=== PATIENT | female | born 1955 | race Caucasian/White ===

== ENCOUNTER 2020-09-13 17:22 | Outpatient (CLI) | payer BC, MEDICARE ==
[2020-09-13 17:51] LABS: BASOPHILS % (AUTO) 0.5 % (0-1); EOSINOPHILS # (AUTO) 0.1 X10'3 (0-0.9); EOSINOPHILS % (AUTO) 2.1 % (0-6); HEMATOCRIT 40.3 % (35.0-45.0); HEMOGLOBIN 13.6 g/dl (12.0-16.0); LYMPHOCYTES # (AUTO) 1.9 X10'3 (1.1-4.8); LYMPHOCYTES % (AUTO) 38.9 % (21-51); MEAN CORPUSCULAR HEMOGLOBIN 29.7 PG (27.0-31.0); MEAN CORPUSCULAR HGB CONC 33.8 g/dL (33.0-36.5); MEAN CORPUSCULAR VOLUME 87.9 FL (78-98); MEAN PLATELET VOLUME 9.1 FL (7.4-10.4); MONOCYTES # (AUTO) 0.4 X10'3 (0-0.9); MONOCYTES % (AUTO) 8.9 % (2-12); NEUTROPHILS # (AUTO) 2.4 X10'3 (1.8-7.7); NEUTROPHILS % (AUTO) 49.6 % (42-75); PLATELET COUNT 162 X10'3 (140-440); RED BLOOD COUNT 4.58 X10'6 (4.20-5.60); RED CELL DISTRIBUTION WIDTH 16.2 % (11.5-14.5); WHITE BLOOD COUNT 4.8 X10'3 (4.5-11.0)
[2020-09-13 18:00] LABS: ALANINE AMINOTRANSFERASE 258 U/L (12-78); ALBUMIN 3.5 G/DL (3.4-5.0); ALBUMIN/GLOBULIN RATIO 0.9 (1.1-1.5); ALKALINE PHOSPHATASE 82 IU/L (46-116); ANION GAP 13 (8-16); ASPARTATE AMINO TRANSFERASE 217 U/L (10-37); BILIRUBIN,TOTAL 0.2 MG/DL (0.1-1.0); CALCIUM 9.2 MG/DL (8.5-10.1); CHLORIDE 109 MMOL/L (99-107); GLUCOSE 102 MG/DL (70-104); POTASSIUM 4.1 MMOL/L (3.5-5.1); SODIUM 142 MMOL/L (135-145); TOTAL CARBON DIOXIDE 20.4 MMOL/L (24-32); TOTAL PROTEIN 7.6 G/DL (6.4-8.2)
[2020-09-13 18:12] LABS: BLOOD UREA NITROGEN 70 MG/DL (7-18); eGFR 50 ML/MIN
[2020-09-13 18:13] LABS: BUN/CREATININE RATIO 63.6 (6.6-38.0)
== END 2020-09-13 23:59 | disposition home or self-care (01) ==
LOC: LAB SPEC 17:22
PROVIDERS: ATTEND Family Medicine
DX: I69.354 Hemiplegia and hemiparesis following cerebral infarction affecting left non-dominant side (principal)
CPT/HCPCS: 36415; 80053; 85025

== ENCOUNTER 2023-01-08 20:58 | Inpatient (IN) | payer BC, MEDICARE ==
[~2023-01-08] VITALS: Ht 165.1 cm; Wt 90.9 kg
[2023-01-08 21:19] LABS: ABG BASE EXCESS -27.1 mmol/L (-2.0-2.0); ABG HCO3 7.7 mmol/L (22.0-26.0); ABG OXYGEN SATURATION 99.3 % (94-97); ABG PO2 (T) 400.4 mmHg (75.0-100.0); FCOHb 0.3 % (0.0-3.9); FMetHb 0.3 % (0.0-1.5); FO2Hb 98.7 % (94-97); TOTAL HEMOGLOBIN 10.8 G/dl (12.0-16.0)
[2023-01-08 21:28] VITALS: BP 85/38
[2023-01-08] MEDS ORDERED: normal saline 1000ML IV soln IVB STA (21:33)
[2023-01-08] MEDS ORDERED: NORepinephrine 8mg/ 250ml NS 250 ML IV PRN (21:35)
[2023-01-08] MEDS ORDERED: piperacillin/tazo 3.375gm/50ml 50 ML IV ONE (21:40)
[2023-01-08 21:41] LABS: CLARITY,URINE CLOUDY (Clear); GLUCOSE, URINE NEGATIVE (Neg); KETONES,URINE TRACE mg/dl (Neg); LEUKOCYTE ESTERASE ,URINE NEGATIVE (Neg); NITRITES, URINE NEGATIVE (Neg); OCCULT BLOOD,URINE SMALL (Neg); PROTEIN,URINE >=300 mg/dl (Neg); UROBILINOGEN,URINE 0.2 E.U/dL (0.2-1.0)
[2023-01-08 21:42] LABS: COLOR,URINE DARK YELLOW (Yellow); UA COLLECTION TYPE STRAIGHT CATH
[2023-01-08] MEDS: NORepinephrine 8mg/ 250ml NS 250 ML IV PRN (21:46)
[2023-01-08 21:47] LABS: BACTERIA,URINE 1+ /HPF (Neg); MUCUS STRANDS MODERATE /LPF (Neg); RENAL CELLS, URINE MODERATE /HPF; SQUAMOUS EPITHELIAL CELL,UR MODERATE /LPF (FEW)
[2023-01-08 21:48] LABS: AMORPHOUS URATES 1+; TRANSITIONAL EPI CELLS,URINE MODERATE /HPF
[2023-01-08 21:49] LABS: FINE GRANULAR CAST 0-3 /LPF (NEGATIVE)
[2023-01-08 21:52] LABS: BASOPHILS % (AUTO) 0.5 % (0-1); EOSINOPHILS % (AUTO) 0.1 % (0-6); HEMATOCRIT 24.1 % (35.0-45.0); HEMOGLOBIN 7.4 g/dl (12.0-16.0); LYMPHOCYTES # (AUTO) 1.2 X10'3 (1.1-4.8); LYMPHOCYTES % (AUTO) 20.5 % (21-51); MEAN CORPUSCULAR HEMOGLOBIN 30.1 PG (27.0-31.0); MEAN CORPUSCULAR HGB CONC 30.9 g/dL (33.0-36.5); MEAN CORPUSCULAR VOLUME 97.3 FL (78-98); MEAN PLATELET VOLUME 9.4 FL (7.4-10.4); MONOCYTES # (AUTO) 0.2 X10'3 (0-0.9); MONOCYTES % (AUTO) 3.6 % (2-12); NEUTROPHILS # (AUTO) 4.2 X10'3 (1.8-7.7); NEUTROPHILS % (AUTO) 75.3 % (42-75); PLATELET COUNT 136 X10'3 (140-440); RED BLOOD COUNT 2.48 X10'6 (4.20-5.60); RED CELL DISTRIBUTION WIDTH 17.7 % (11.5-14.5); WHITE BLOOD COUNT 5.6 X10'3 (4.5-11.0)
[2023-01-08] MEDS ORDERED: pantoprazole 40MG/NS 100ML BAG 100 ML IV ONE ×5 (21:55→23:15)
[2023-01-08] MEDS ORDERED: pantoprazole 40 MG vial IV ONE (21:55)
[2023-01-08 22:01] LABS: WAXY CASTS,URINE 0-3 /LPF (NEGATIVE)
[2023-01-08 22:02] LABS: YEAST FEW /HPF (NEGATIVE)
[2023-01-08 22:07] VITALS: BP 111/42
[2023-01-08 22:10] LABS: ALANINE AMINOTRANSFERASE 78 U/L (12-78); ALBUMIN 1.9 G/DL (3.4-5.0); ALBUMIN/GLOBULIN RATIO 0.8 (1.1-1.5); ALKALINE PHOSPHATASE 53 IU/L (46-116); ANION GAP 15 (8-16); BILIRUBIN,TOTAL 0.2 MG/DL (0.1-1.0); BLOOD UREA NITROGEN 37 MG/DL (7-18); BUN/CREATININE RATIO 18.2 (10.0-20.0); CHLORIDE 117 MMOL/L (99-107); CREATININE 2.03 MG/DL (0.40-0.90); GLUCOSE 286 MG/DL (70-104); POTASSIUM 4.6 MMOL/L (3.5-5.1); SODIUM 146 MMOL/L (135-145); TOTAL PROTEIN 4.3 G/DL (6.4-8.2); eGFR 24 ML/MIN
[2023-01-08 22:11] LABS: ABG BASE EXCESS -23.1 mmol/L (-2.0-2.0); ABG HCO3 6.3 mmol/L (22.0-26.0); ABG OXYGEN SATURATION 99.2 % (94-97); ABG PCO2 (T) 25.5 mmHg (32.0-45.0); ABG PO2 (T) 307.4 mmHg (75.0-100.0); FCOHb 0.2 % (0.0-3.9); FMetHb 0.6 % (0.0-1.5); FO2Hb 98.4 % (94-97); PATIENT TEMPERATURE 36.7; PEEP 5 cm H2O; RESPIRATORY RATE 24 b/min; TIDAL VOLUME 400 mL; TOTAL HEMOGLOBIN 7.8 G/dl (12.0-16.0)
[2023-01-08 22:17] LABS: CALCIUM 14.2 MG/DL (8.5-10.1); TOTAL CARBON DIOXIDE 14.3 MMOL/L (24-32)
[2023-01-08 22:24] LABS: ASPARTATE AMINO TRANSFERASE 138 U/L (10-37)
[2023-01-08 22:47] VITALS: BP 94/43
[2023-01-08 23:04] VITALS: BP 111/42
[2023-01-08 23:18] VITALS: BP 93/62
[2023-01-08] MEDS ORDERED: sodium bicarbonate (8.4%) 1 mEq/ml syringe IV ONE (23:40)
[2023-01-08] MEDS ORDERED: atropine 0.1mg/ml 10ml syringe ONE (23:58)
[2023-01-09] MEDS ORDERED: magnesium hydroxide 30ml (MOM) UD suspension PO PRN
[2023-01-09] MEDS ORDERED: acetaminophen 325mg tablet PO PRN ×2
[2023-01-09] MEDS ORDERED: ipratropium/albuterol 3ml nebule NEB PRN
[2023-01-09] MEDS ORDERED: DOPamine 400mg/D5W 250ml 250 ML IV SCH (00:10)
[2023-01-09] MEDS: NORepinephrine 8mg/ 250ml NS 250 ML IV PRN (00:10)
[2023-01-09] MEDS ORDERED: atropine 1 MG/1 ML vial IV ONE ×2 (00:15→00:20)
[2023-01-09 00:25] VITALS: BP 98/72
[2023-01-09 00:27] LABS: BASOPHILS % (AUTO) 0.4 % (0-1); EOSINOPHILS % (AUTO) 0.2 % (0-6); HEMATOCRIT 30.9 % (35.0-45.0); HEMOGLOBIN 9.4 g/dl (12.0-16.0); LYMPHOCYTES # (AUTO) 1.3 X10'3 (1.1-4.8); LYMPHOCYTES % (AUTO) 13.1 % (21-51); MEAN CORPUSCULAR HEMOGLOBIN 30.1 PG (27.0-31.0); MEAN CORPUSCULAR HGB CONC 30.3 g/dL (33.0-36.5); MEAN CORPUSCULAR VOLUME 99.5 FL (78-98); MEAN PLATELET VOLUME 8.9 FL (7.4-10.4); MONOCYTES # (AUTO) 0.6 X10'3 (0-0.9); MONOCYTES % (AUTO) 5.6 % (2-12); NEUTROPHILS % (AUTO) 80.7 % (42-75); PLATELET COUNT 135 X10'3 (140-440); RED BLOOD COUNT 3.11 X10'6 (4.20-5.60); RED CELL DISTRIBUTION WIDTH 17.6 % (11.5-14.5); WHITE BLOOD COUNT 9.9 X10'3 (4.5-11.0)
[2023-01-09 00:40] LABS: ALANINE AMINOTRANSFERASE 123 U/L (12-78); ALBUMIN 2.1 G/DL (3.4-5.0); ALBUMIN/GLOBULIN RATIO 0.8 (1.1-1.5); ALKALINE PHOSPHATASE 65 IU/L (46-116); ANION GAP 26 (8-16); ASPARTATE AMINO TRANSFERASE 258 U/L (10-37); BILIRUBIN,TOTAL 0.3 MG/DL (0.1-1.0); BLOOD UREA NITROGEN 36 MG/DL (7-18); BUN/CREATININE RATIO 16.4 (10.0-20.0); CALCIUM 11.1 MG/DL (8.5-10.1); CHLORIDE 114 MMOL/L (99-107); GLUCOSE 131 MG/DL (70-104); SODIUM 148 MMOL/L (135-145); TOTAL PROTEIN 4.9 G/DL (6.4-8.2); eGFR 22 ML/MIN
[2023-01-09 00:40] LABS: ABG BASE EXCESS -22.2 mmol/L (-2.0-2.0); ABG HCO3 7.5 mmol/L (22.0-26.0); ABG OXYGEN SATURATION 95.3 % (94-97); ABG PCO2 (T) 28.3 mmHg (32.0-45.0); ABG PO2 (T) 98.6 mmHg (75.0-100.0); FCOHb 0.3 % (0.0-3.9); FMetHb 0.1 % (0.0-1.5); FO2Hb 94.9 % (94-97); PATIENT TEMPERATURE 35.4; PEEP 5 cm H2O; RESPIRATORY RATE 20 b/min; TIDAL VOLUME 400 mL; TOTAL HEMOGLOBIN 9.5 G/dl (12.0-16.0)
[2023-01-09 00:53] LABS: POTASSIUM 6.2 MMOL/L (3.5-5.1); TOTAL CARBON DIOXIDE 7.6 MMOL/L (24-32)
[2023-01-09] MEDS ORDERED: DOPamine/D5W 400mg/250ml bag IV ONE (01:00)
[2023-01-09] MEDS ORDERED: atropine 0.1mg/ml 10ml syringe ONE (01:00)
[2023-01-09] MEDS ORDERED: sodium bicarbonate (8.4%) 1 mEq/ml syringe ONE (01:00)
[2023-01-09] MEDS ORDERED: epiNEPHrine 0.1mg/ml 10ml syringe ONE (01:00)
[2023-01-09] MEDS ORDERED: LIDOcaine 2% (20 mg/ml) 5ml cardiac syringe ONE (01:00)
[2023-01-09] MEDS ORDERED: amiodarone 50MG/ML inj IV ONE (01:00)
[2023-01-09] MEDS ORDERED: calcium chloride 100 MG/1 ML inj IV ONE (01:00)
--- NOTE | 2023-01-09 01:11 | NUR ---
PT RETURNED FROM CT AT 0110, CPR RESTARTED PATIENT WAS REENTERING THE ROOM. 1 AMP EPI AT 1011 0114 PULSE CHECK - NO PULSE, RHYTHM ASYSTOLE, 1 AMP EPI GIVEN 0116 PULSE CHECK - NO PULSE, RHYTHM ASYSTOLE, ULTRASUND BY SHOWED NO CARDIAC ACTIVITY, CPR RESUMED, 150 AMIO GIVEN 0117 1 AMP EPI GIVEN 0118 PULSE CHECK, RHYTHM VFIB 0119 200J DELIVERED, CPR RESUMED 0121 1 AMP EPI GIVEN 0122 PULSE CHECK, RHYTHM ASYSTOLE 0123 TIME OF CALLED BY DR. GALEANA
--- NOTE | 2023-01-09 03:01 | NUR ---
01/08/232055 Pt arrived, compressions in progress, pt was intubated in the field by EMS 14 cm at the gums. One round of epi administered in the field, no pulse. 2056 Epinephrine adminstered, central line placed by . 2058 Pulse check, No pulse, Bicarb, calcium, and epinepherine administered 2100 Pulse check, No pulse 2101 Lidocain adminstered 2102 Pulse check, pulse palpated. 2104 Arterial line placed by MD 2105 One amp calcium administered 2107 Pulseless, shockable rhythm, Shock administered @ 200 Joules, One amp of epinephrine, 2111 Amiodarone 300 mg, pulse check, pulse palpated sinus emi 2118 One amp epi for HR 37 2119 Epi and bicarb administered 2120 Calcium administered 2125 One amp of epi admininstered, ROSC
[2023-01-09] MEDS ORDERED: famotidine/PF 10 mg/ml inj IV SCH (08:00)
== END 2023-01-09 03:55 | DRG 377 ==
LOC: ER 20:58 → ED HOLD 01-09 00:48
PROVIDERS: ADMIT Student in an Organized Health Care Education/Training Program; ATTEND Student in an Organized Health Care Education/Training Program
PROC: 30233N1 Transfusion of Nonautologous Red Blood Cells into Peripheral Vein, Percutaneous Approach (ICD-10-PCS; principal; 2023-01-08)
PROC: 05HY33Z Insertion of Infusion Device into Upper Vein, Percutaneous Approach (ICD-10-PCS; 2023-01-08)
PROC: 5A12012 Performance of Cardiac Output, Single, Manual (ICD-10-PCS; 2023-01-08)
PROC: 5A2204Z Restoration of Cardiac Rhythm, Single (ICD-10-PCS; 2023-01-08)
PROC: 04HY32Z Insertion of Monitoring Device into Lower Artery, Percutaneous Approach (ICD-10-PCS; 2023-01-08)
PROC: 0BH17EZ Insertion of Endotracheal Airway into Trachea, Via Natural or Artificial Opening (ICD-10-PCS; 2023-01-08)
DX: K92.2 Gastrointestinal hemorrhage, unspecified (principal); N17.0 Acute kidney failure with tubular necrosis; E87.20 Acidosis, unspecified; I69.359 Hemiplegia and hemiparesis following cerebral infarction affecting unspecified side; I47.20 Ventricular tachycardia, unspecified; E87.5 Hyperkalemia; I46.9 Cardiac arrest, cause unspecified; B19.20 Unspecified viral hepatitis C without hepatic coma; I95.9 Hypotension, unspecified; R00.1 Bradycardia, unspecified; R74.8 Abnormal levels of other serum enzymes; R77.8 Other specified abnormalities of plasma proteins; D64.9 Anemia, unspecified
CPT/HCPCS: 36415; 36430; 36600; 71045; 80053; 81001; 82803; 83605; 83880; 84145; 84484; 85018; 85025; 86885; 86900; 86901; 86920; 87040; 87070; 87088; 92950; 93005; 93306; 94002; 94760; 94799; 96365; 99285; C9113; G0378; J0171; J0282; J0461; J1265; J2543; J3490; J7030; J7040; P9016